=== PATIENT | male | born 1965 | race Caucasian/White ===

== ENCOUNTER 2017-08-17 14:51 | Emergency (ER) | payer OTHER ==
[2017-08-17 14:59] VITALS: BP 131/92
[2017-08-17] MEDS ORDERED: BUPIVACAINE 0.5%-EPI 1:200000 PF 10 ML VIAL SUBQ STA (15:26)
[2017-08-17] MEDS ORDERED: BUPIVACAINE 0.5% PF 30 ML VIAL SUBQ STA (15:27)
--- NOTE | 2017-08-17 15:32 | ED Physician Documentation ---
History of Present Illness - Stated complaint Stated Complaint: R THUMB LAC - Chief complaint Chief Complaint: General - Additonal information Additional information: hx from pt 52 male lac to R thumb on a mirror no FB sensation tdap UTD Review of Systems Skin: reports: Laceration (s) PD PAST MEDICAL HISTORY - Present Medications Home Medications: Ambulatory Orders Medication Instructions Recorded Confirmed No Known Home Medications [No 08/17/17 08/17/17 Known Home Medications] - Allergies Allergies/Adverse Reactions: Allergies Allergy/AdvReac Type Severity Reaction Status Date / Time No Known Drug Allergies Allergy Verified 08/17/17 14:57 - Social History Does the pt smoke?: No Smoking Status: Never smoker PD ED PE NORMAL - Vitals Vital signs reviewed: Yes - Extremities Extremities: Other (2.5 cm U shaped lac over IP jt R thumb, tendon fxn intact, no FB seen or palpated, MSV intact) Results - Vitals Vitals: Vital Signs - 24 hr 08/17/17 14:54 Temperature 36.6 C Heart Rate 76 Respiratory 18 Rate Blood Pressure 131/92 H O2 Saturation 94 Oxygen O2 Source Room air Procedures - Laceration (location) R thumb Length in cm: 3 Wound type: Curved Neurovascular status: Sensory intact, Motor intact, Vascular intact Anesthesia: Marcaine 0.5% Wound Preparation: Irrigated copiously NS (CLINICAL MICROBIOLOGIST), Wound explored, To the base. No: FB identified Skin layer closure: Nylon, Size #-0 - enter number (4), Sutures - enter # (6) Other: Patient tolerated well, No complications, Neurovascular intact, Dressing applied, Tetanus UTD Complexity: Simple Departure - Departure Disposition: 01 Home, Self Care Clinical Impression: Finger laceration Qualifiers: Encounter type: initial encounter Finger: thumb Damage to nail status: without damage Foreign body presence: without foreign body Laterality: right Qualified Code(s): S61.011A - Laceration without foreign body of right thumb without damage to nail, initial encounter Instructions: ED Laceration Hand Comments: Wear the splint as much as possible for the next week. Wash the finger and apply fresh antibiotic ointment at least once a day Sutures out 10 days We washed the wound carefully, but even with good wound care some lacerations become infected - please return for any signs of infection such as redness swelling drainage or severe pain
[2017-08-17] MEDS ORDERED: BUPIVACAINE 0.5% PF 10 ML VIAL IM ONE (16:00)
[2017-08-17] MEDS ORDERED: BUPIVACAINE 0.5% PF 10 ML VIAL SUBQ ONE (16:00)
[2017-08-17] MEDS ORDERED: BUPIVACAINE 0.5%-EPI 1:200000 PF 10 ML VIAL SUBQ SCH (16:00)
== END 2017-08-17 17:48 | disposition home or self-care (01) ==
LOC: ED 14:51
DX: S61.011A Laceration without foreign body of right thumb without damage to nail, initial encounter (principal); W25.XXXA Contact with sharp glass, initial encounter; Y93.89 Activity, other specified
CPT/HCPCS: 12002; 99282; 99283

== ENCOUNTER 2021-02-23 06:17 | Day surgery (SDC) | payer OTHER ==
[2021-02-23] MEDS ORDERED: LACTATED RINGERS 1,000 ML IV ONE (07:02)
[2021-02-23] MEDS ORDERED: MIDAZOLAM 2 MG/2 ML VIAL ONE (07:13)
[2021-02-23] MEDS ORDERED: fentaNYL 100 MCG/2 ML VIAL ONE (07:14)
[2021-02-23] MEDS ORDERED: PROPOFOL 200 MG/20 ML VIAL IVP ONE ×2 (07:16→07:53)
--- NOTE | 2021-02-23 07:20 | ANESTHESIA ---
Pre-Anesthesia VS, & Labs - Diagnosis positive cologuard - Procedure colonoscopy Vital Signs: Temp Pulse Resp BP Pulse Ox 36.1 C L 76 16 130/98 H 96 02/23/21 06:28 02/23/21 06:28 02/23/21 06:28 02/23/21 06:28 02/23/21 06:28 Height: 5 ft 9 in Weight (kg): 78.5 kg Body Mass Index: 25.5 BMI Classification: Overweight - NPO >8 hours - Lab Results Lab results reviewed: Yes Home Medications and Allergies No Known Home Medications 08/17/17 Allergies/Adverse Reactions: Allergies Allergy/AdvReac Type Severity Reaction Status Date / Time No Known Drug Allergies Allergy Verified 08/17/17 14:57 Anes History & Medical History - Anesthetic History Anesthesia Complications: reports: No previous complications Family history of Anesthesia Complications: Denies Family history of Malignant Hyperthermia: Denies - Medical History Cardiovascular: reports: None Pulmonary: reports: None Gastrointestinal: reports: None, Other Urinary: reports: None Musculoskeletal: reports: None Endocrine/Autoimmune: reports: None Skin: reports: None Smoking Status: Never smoker - Surgical History General: reports: Other Exam General: Alert, Oriented x3, Cooperative Dental: WNL Mouth Opening: Greater than 4 Fingerbreadths Neck Mobility: Normal Mallampati classification: I Thyromental Distance: greater than 6 cm Respiratory: Lungs clear, Normal breath sounds, No respiratory distress Cardiovascular: Regular rate Neurological: Normal speech Mental/Cognitive Status: Alert/Oriented X3, Normal for patient Cognitive Status: Within normal limits Plan Anesthesia Type: Total IV Consent for Procedure(s) Verified and Reviewed: Yes Code Status: Attempt Resuscitation ASA classification: 2-Mild systemic disease Is this case an emergency?: No
[2021-02-23] MEDS ORDERED: LACTATED RINGERS 300 ML IV ONE (07:59)
[2021-02-23 08:32] VITALS: BP 116/94
--- NOTE | 2021-02-23 08:50 | ANESTHESIA POST OP EVALUATION ---
Anesthesia Post Eval - Post Anesthesia Eval Vitals: Last Vital Signs Temp 36.1 C L 02/23/21 08:31 Pulse 76 02/23/21 08:31 Resp 16 02/23/21 08:31 BP 116/94 H 02/23/21 08:31 Pulse Ox 96 02/23/21 08:31 CV Function Including HR & BP: Stable Pain Control: Satisfactory Nausea & Vomiting: Negative Mental Status: Baseline Respiratory Status: Airway Patent Hydration Status: Satisfactory Anesthesia Complications: None
== END 2021-02-23 06:18 | disposition home or self-care (01) ==
LOC: SDS 06:17
PROVIDERS: ATTEND Surgery
DX: R19.5 Other fecal abnormalities (principal); K64.8 Other hemorrhoids; Z87.891 Personal history of nicotine dependence
CPT/HCPCS: 45378; J7120

== ENCOUNTER 2022-09-22 18:19 | Emergency (ER) | payer OTHER ==
[2022-09-22] MEDS ORDERED: BENZONATATE 100 MG CAPSULE PO STA (19:18)
--- NOTE | 2022-09-22 19:20 | ED Physician Documentation ---
PD HPI DYSPNEA - Stated complaint Stated Complaint: COUGH,THROAT PX - Chief complaint Chief Complaint: Resp - History obtained from History obtained from: Patient - Additional information Additional information: He has had a nonproductive dry cough for about a week that was particularly bad last night that kept him from sleeping. There is no associated fever but he has had a sore throat and scratchy voice with this. Took COVID test earlier today that was negative. He is otherwise healthy. PD PAST MEDICAL HISTORY - Past Medical History Past Medical History: Yes Cardiovascular: None Respiratory: None Endocrine/Autoimmune: None GI: None, Other : None HEENT: None Psych: None Musculoskeletal: None Derm: None - Past Surgical History Past Surgical History: Yes General: Other - Present Medications Home Medications: Ambulatory Orders Medication Instructions Recorded Confirmed Benzonatate [Tessalon] 200 mg PO TID PRN #20 cap 09/22/22 - Allergies Allergies/Adverse Reactions: Allergies Allergy/AdvReac Type Severity Reaction Status Date / Time No Known Drug Allergies Allergy Verified 09/22/22 18:38 - Social History Does the pt smoke?: No Smoking Status: Never smoker Does the pt drink ETOH?: Yes Does the pt have substance abuse?: No PD ED PE NORMAL - Vitals Vital signs reviewed: Yes - General General: Alert and oriented X 3, No acute distress - HEENT HEENT: Pharynx benign, Other (Mildly laryngitic voice with normal-appearing visible oropharynx.) - Neck Neck: Supple, no meningeal sign, No bony TTP - Cardiac Cardiac: RRR, No murmur - Respiratory Respiratory: No respiratory distress, Other (Occasional hacking cough with clear lungs) - Abdomen Abdomen: Non tender - Derm Derm: No rash - Neuro Neuro: Alert and oriented X 3, Normal speech Results - Vitals Vitals: Vital Signs - 24 hr 09/22/22 18:35 Temperature 36.1 C L Heart Rate 72 Respiratory 16 Rate Blood Pressure 138/93 H O2 Saturation 97 Oxygen O2 Source Room air PD Medical Decision Making - ED course ED course: 57-year-old gentleman with dry cough, he has clear lungs with no fever so doubt pneumonia. Parapertussis is going around in the community and that is a significant possibility. We will check a bio fire panel and prescribe Tessalon. Departure - Departure Disposition: 01 Home, Self Care Clinical Impression: Viral respiratory infection Condition: Good Record reviewed to determine appropriate education?: Yes Instructions: ED Upper Resp Infec No Abx Tx Prescriptions: Benzonatate [Tessalon] 200 mg PO TID PRN #20 cap PRN Reason: Cough Comments: You have a bio fire respiratory panel pending. This checks for COVID, parapertussis which we discussed, and a number of other respiratory ailments. I will call you in a few hours with results at [phone]. Return if worsening and follow-up with your doctor mid next week if not better.
[2022-09-22 19:31] VITALS: BP 130/70
[2022-09-22 20:24] LABS: B. PARAPERTUSSIS- RESP PCR PAN NOT DETECTED; B. PERTUSSIS- RESP PCR PANEL NOT DETECTED; C. PNEUMONIAE- RESP PCR PANEL NOT DETECTED; CORONAVIRUS 229E-RESP PCR NOT DETECTED; CORONAVIRUS HKU1-RESP PCR NOT DETECTED; CORONAVIRUS NL63-RESP PCR NOT DETECTED; CORONAVIRUS OC43-RESP PCR NOT DETECTED; HUMAN METAPNEUMOVIRUS NOT DETECTED; INFLUENZA A- RESP PCR PANEL NOT DETECTED; INFLUENZA B - RESP PCR PANEL NOT DETECTED; M. PNEUMONIAE- RESP PCR PANEL NOT DETECTED; PARAINFLUENZA VIRUS 1 NOT DETECTED; PARAINFLUENZA VIRUS 2 NOT DETECTED; PARAINFLUENZA VIRUS 3 NOT DETECTED; PARAINFLUENZA VIRUS 4 NOT DETECTED; RHINOVIRUS/ENTEROVIRUS NOT DETECTED; RSV- RESP PCR PANEL NOT DETECTED; SARS-CoV-2 -RESP PCR PANEL NOT DETECTED
== END 2022-09-22 19:28 | disposition home or self-care (01) ==
LOC: ED 18:19
DX: J98.8 Other specified respiratory disorders (principal); Z20.822 Contact with and (suspected) exposure to COVID-19
CPT/HCPCS: 87633; 99283; A9270